=== PATIENT | female | born 1945 | race Caucasian/White ===

== ENCOUNTER 2016-07-22 23:58 | Observation (INO) | payer MEDICARE, BC ==
--- NOTE | ~2016-07-22 | HP ---
History And Physical [id number] [facility] [place]. [address] NAME: ELAINE FLOREZ : 49 STATUS : ADM Mike PAT#: [id number] AGE: 71 ADM/REG DATE : 07/22/16 MR#: [id number] REPORT SERV DATE: 07/23/16 DICTATED BY: ABDULAZIZ APONTE DATE: 07/23/16 REPORT STATUS : Draft TRANSCRIBED BY: MODL DATE: 07/23/16 DATE OF ADMISSION: 07/23/2016 CHIEF COMPLAINT: Bilateral lower extremity swelling and redness and pain. HISTORY OF PRESENT ILLNESS: This is a 71-year-old lady with history of questionable bilateral lower extremity cellulitis presenting yet again with complaints of bilateral lower extremity edema, redness, and tenderness. The patient reports that she has been fighting "bilateral lower extremity cellulitis" since Thanks of last year. The patient feels that she has never really gotten over the cellulitis. The patient apparently has had multiple ER presentations as well as hospitalizations and the patient did actually get multiple courses of antibiotics. The patient was most recently hospitalized back in 04/2016 and at that time, the patient was actually seen by Infectious Disease. It was felt that the patient was suffering from a combination of lymphedema along with peripheral neuropathic pain and venous insufficiency that made it look like she was suffering from bilateral lower extremity cellulitis. Unfortunately, patient is very fixated on the idea of having an active infection. The patient firmly believes that the patient has gotten better every time with antibiotic therapy. The patient came to the ER 1 week ago and at that time the patient was actually discharged home from ER after she had a very benign evaluation that included CBC, lactate, and blood cultures. They were all normal and the patient was discharged home without any antibiotics which patient is quite upset about. The patient presents yet again with the above symptoms. In the ER, patient was found to be afebrile and hemodynamically stable. The patient was found to have again red and swollen bilateral lower extremities with warmth to touch. Internal Medicine consultation was requested for admission of the patient for further evaluation and care. 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 REVIEW OF SYSTEMS: The patient reports that she had fevers up to 101 at home. Otherwise, 14-point review of systems reviewed and negative other than mentioned above. MEDICATIONS: The list is still pending at this time. ALLERGIES: ERYTHROMYCIN. PAST MEDICAL HISTORY: 1. Bilateral venous insufficiency. 2. Peripheral neuropathic pain. History And Physical [address] [address] NAME: ELAINE FLOREZ : 49 STATUS : ADM Mike PAT#: [id number] AGE: 71 ADM/REG DATE : 07/22/16 MR#: [id number] REPORT SERV DATE: 07/23/16 DICTATED BY: ABDULAZIZ APONTE DATE: 07/23/16 REPORT STATUS : Draft TRANSCRIBED BY: SHARON DATE: 07/23/16 3. Bilateral lower extremity lymphedema. 4. Frequent UTIs. 5. Questionable cellulitis in the past. Very similar to today's episode which apparently responded to antibiotics per patient. 6. Anxiety with hypomania. 7. Osteoporosis. 8. Osteoarthritis. PAST SURGICAL HISTORY: Three breast lumpectomies which were all benign. FAMILY HISTORY: 1. Coronary artery disease. 2. Alzheimer's dementia. SOCIAL HISTORY: The patient does not smoke but she does consume red wine almost nightly. The patient otherwise does not use any illicit drugs. The patient lives at home by herself. PHYSICAL EXAMINATION: VITAL SIGNS: Temperature 98.1, blood pressure 171/74, pulse 95, respiratory rate is 20, and saturating 100% on room air. GENERAL: Patient is alert and oriented x3 with no focal neurologic deficits. The patient is awake, does not appear to be in acute distress, and she is cooperative. NECK: No JVD. No lymphadenopathy. Normal thyroid. CHEST: No midline sternotomy scar and no tenderness to palpation. LUNGS: Clear to auscultation bilaterally with normal respiratory effort on room air. CARDIOVASCULAR: Regular rate and rhythm with no murmurs, rubs, or gallops, and PMI is nondisplaced. ABDOMEN: Soft, nontender with active bowel sounds and no organomegaly. EXTREMITIES: The patient does have 2+ bilateral lower extremity pitting edema with redness which may be venous stasis changes as well as warmth. The patient also has bilateral lower extremity tenderness to palpation. The patient otherwise has normal distal pulses and no calf tenderness. SKIN: Clean, dry, warm, and intact. LABORATORY DATA: The labs from today are still pending but the patient has had very benign lab work from one week ago that included CBC, BMP as well as lactate. Blood cultures were done at that time and it was negative x2. ASSESSMENT AND PLAN: This is a 71-year-old lady with history of questionable bilateral lower extremity cellulitis presenting with another episode. 1. Questionable bilateral lower extremity cellulitis, it is more likely that patient is suffering from a combination of bilateral lower extremity chronic lymphedema along with venous insufficiency and peripheral neuropathy as she was evaluated back in 04/2016. 2. 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 3. Anxiety with hypomania. 4. Osteoarthritis. History And Physical [address] [address] NAME: ELAINE FLOREZ : 49 STATUS : ADM Mike PAT#: [id number] AGE: 71 ADM/REG DATE : 07/22/16 MR#: [id number] REPORT SERV DATE: 07/23/16 DICTATED BY: ABDULAZIZ APONTE DATE: 07/23/16 REPORT STATUS : Draft TRANSCRIBED BY: SHARON DATE: 07/23/16 5. Osteoporosis. PLAN: The plan is to admit the patient for observation. I explained to patient that she will not be given any additional antibiotic therapy unless further evaluations do point towards cellulitis since having been on multiple antibiotics cannot be good for her. The patient is understanding. Thus I will go ahead and check procalcitonin level and follow up on the lab work from the ER that is still pending at this time. I will also go ahead and check ultrasound of the bilateral extremities just to rule out potential DVT. The patient will be given compression stockings for the chronic lymphedema and venous insufficiency changes. For the claimed Jarrod syndrome since the patient is quite concerned, I will go ahead and check calcium level to include ionized calcium and albumin levels in the morning and for alcohol abuse, the patient will be given daily vitamins along with being monitored under CIWA protocol. Otherwise, for the rest of stable past medical conditions, including anxiety, hypomania, osteoarthritis, osteoporosis, and will continue home medications when the home medication list becomes available. Tentative disposition is to anticipate discharge of the patient home after she has had negative infectious workup. Standard DVT prophylaxis. The patient is full code at this time. YSC/MODL Abdulaziz Aponte MD / [id number] CC: MD Brady Harvey,
--- NOTE | ~2016-07-22 | DS ---
Discharge Summary [facility] [address] [place]. [address] NAME: ELAINE FLOREZ : 49 STATUS : DIS Mike PAT#: [id number] AGE: 71 ADM/REG DATE : 07/22/16 MR#: [id number] REPORT SERV DATE: 07/24/16 DICTATED BY: ANGEL MOMIN DATE: 07/23/16 REPORT STATUS : Draft TRANSCRIBED BY: SHARON DATE: 07/23/16 ADMISSION DATE: 07/22/2016 DISCHARGE DATE: 07/23/2016 DISCHARGE DIAGNOSES: 1. Bilateral lower extremity lymphedema. 2. Bilateral lower extremity venous insufficiency. 3. Bilateral lower extremity cellulitis ruled out. 4. Hypocalcemia. 5. Alcohol use. 6. Anxiety with hypermania. IMAGIN. CT of brain, 07/23/2016, no acute head CT. 2. Chest x-ray, 07/23/2016; impression, cardiomegaly, stable. There are some minimal lateral atelectatic changes. 3. Venous Doppler ultrasound, bilateral lower extremities, 07/23/2016; impression, no evidence of DVT bilaterally. LABORATORY DATA: WBC 7.7, hemoglobin 10.5, hematocrit 34.0, platelet count 362, and procalcitonin is less than 0.05. Sodium is 143, potassium is 3.7, chloride is 110, lactate is 0.7, BUN is 17, creatinine is 0.78, glucose is 120, calcium is 8.4, ionized calcium is 3.56, albumin is 3.2, and BNP is 10.8. COURSE DURING HOSPITAL STAY: Please refer to history and physical dictated by Dr. Aponte on 07/23/2016 for complete admission details. This patient is a 71-year-old female, who presented to [facility]'s Emergency Room with complaints of bilateral lower extremity swelling, redness, and pain. The patient does present with a history of lymphedema, has been noted with several emergency room visits due to complaints of edema and pain. The patient does state that prior to this admission she had a recent fall approximately 4 days before this visit. Does admit to alcohol use. States that she was evaluated in the emergency room and was told she had sprained her left wrist, noted in a brace at this time. The patient does state that she has had bruising on her hand and on her left zoroastrian. The patient was admitted under observation for further evaluation and testing. 1. Bilateral lower extremity edema, bilateral lower venous insufficiency. The patient has had a known history of lymphedema, has been following up with her primary care. The patient's WBC count is normal, afebrile. Ultrasound was negative for DVT. The patient does state that she has seen someone as an outpatient for lymphedema but has not been wrapping her legs at home due to lack of understanding on care. We will arrange for patient to follow up Wound Care as an outpatient for lymphedema education. 2. With the cellulitis, the patient has known slight redness in bilateral lower extremities both with history of lymphedema. The patient was monitored over 24 hours. Afebrile. No increase in edema or pain. DVT negative. The patient will follow up with her primary care this week for further testing for further evaluation. The Discharge Summary [id number] [place]. [address] NAME: ELAINE FLOREZ : 49 STATUS : DIS Mike PAT#: [id number] AGE: 71 ADM/REG DATE : 07/22/16 MR#: [id number] REPORT SERV DATE: 07/24/16 DICTATED BY: ANGEL MOMIN DATE: 07/23/16 REPORT STATUS : Draft TRANSCRIBED BY: SHARON DATE: 07/23/16 patient was not started on antibiotics. 3. Hypocalcemia, calcium is 8.4, ionized calcium is 3.56, this will be replaced per protocol before the patient is discharged. 4. Alcohol use, it was discussed with the patient regarding her alcohol use, the patient does admit to daily use, was offered counseling as inpatient or outpatient, the patient did decline at this time. 5. Anxiety with hypermania, the patient does state that she follows with a counselor as an outpatient. Have advised the patient to continue to follow with counselor. She did state understanding. DISCHARGE MEDICATIONS: 1. Folic acid 1 mg daily. 2. Multivitamin over the counter 1 daily. 3. Vitamin D 2000 units p.o. daily. 4. Nasacort nasal spray as directed by primary care. 5. Awilda 1 tablet daily. 6. Belsomra 15 mg one p.o. at bedtime. 7. Probiotic 1 p.o. daily. 8. Estrace 0.1 mg daily. 9. Risperdal 0.25 mg one p.o. p.r.n. DISCHARGE PLANNING: The patient will follow up with her primary care in 3 to 5 days. She will also be provided appointment with the [facility] for lymphedema education and treatment. No prescriptions were provided at discharge. This discharge took greater than 30 minutes. ALFRED/HSARON Angel Momin NP / [id number] CC: MD Brady Harvey DO
[~2016-07-22 23:58] MED LIST: ACET500CAP PO; ADVIL PO; ANTI-FUNGAL12 TOP; ASAB PO; ATV1 PO; BACDS PO; CENTRUM PO; CIP5 PO; FLORASTOR250 MG PO; FLUCON150 PO; FOSAMAX70 MG PO; K500 PO; LIDODERM TOP; LOTRIMIN AF12 EX; LYRICA75 PO; METHOC750B PO; MOBIC15 MG PO; MONODOX100 MG PO; NORCO1 TA1 PO; PAXIL40 MG PO; SULFA PO; ULTRAM50 PO; VOLTAREN1 %
[2016-07-23 03:07] LABS: BASOPHILS 0.4 %; BASOPHILS ABSOLUTE 0.03 10/3/uL (0.0-0.16); EOSINOPHILS 1.3 %; EOSINOPHILS ABSOLUTE 0.11 10/3/uL (0.0-0.53); HEMATOCRIT 34.9 % (36.0-48.0); HEMOGLOBIN 10.9 g/dL (12.0-16.0); IMMATURE GRANULOCYTES 0.4 %; IMMATURE GRANULOCYTES ABSOLUTE 0.03 10/3/uL (0.0-0.11); LYMPHOCYTES 16.7 %; LYMPHOCYTES ABSOLUTE 1.38 10/3/uL (0.67-4.30); MEAN CORPUS HGB CONC 31.2 g/dL (32.0-36.0); MEAN CORPUSCULAR VOLUME 89.7 fL (80-100); MEAN PLATELET VOLUME 8.8 fL (9.2-13.0); MONOCYTES 7.8 %; MONOCYTES ABSOLUTE 0.64 10/3/uL (0.21-1.20); NEUTROPHILS 73.4 %; NEUTROPHILS ABSOLUTE 6.06 10/3/uL (2.02-8.40); PLATELET COUNT 409 10/3/uL (150-400); RBC DISTRIBUTION WIDTH 16.2 % (12.0-16.0); RED CELL COUNT 3.89 10/6/uL (4.0-5.6)
[2016-07-23 03:09] LABS: ER CBC TAT 0 Hrs 07 Mins; MANUAL DIFF NO %; WHITE BLOOD CELLS 8.3 10/3/uL (4.5-10.5)
[2016-07-23 03:27] LABS: LACTATE 0.7 MMOL/L (0.3-2.4)
[2016-07-23] MEDS ORDERED: NASACORTAQ (04:38)
[2016-07-23] MEDS ORDERED: VITAMIN D2000 UNIT PO (04:38)
[2016-07-23] MEDS ORDERED: ALLEGRA PO (04:38)
[2016-07-23] MEDS ORDERED: BELSOMRA15 MG PO (04:39)
[2016-07-23] MEDS ORDERED: PROBIOTIC PO (04:39)
[2016-07-23] MEDS ORDERED: METRONIDAZOLE CREAM V (04:41)
[2016-07-23] MEDS ORDERED: ESTRACE V (04:41)
[2016-07-23] MEDS ORDERED: RISPERDAL0.25 MG PO (04:42)
[2016-07-23 05:12] LABS: SED RATE 24 MM/HR (0-20)
[2016-07-23 07:18] LABS: BASOPHILS 0.3 %; BASOPHILS ABSOLUTE 0.02 10/3/uL (0.0-0.16); EOSINOPHILS 1.2 %; EOSINOPHILS ABSOLUTE 0.09 10/3/uL (0.0-0.53); HEMOGLOBIN 10.5 g/dL (12.0-16.0); IMMATURE GRANULOCYTES 0.4 %; IMMATURE GRANULOCYTES ABSOLUTE 0.03 10/3/uL (0.0-0.11); LYMPHOCYTES 18.5 %; LYMPHOCYTES ABSOLUTE 1.43 10/3/uL (0.67-4.30); MEAN CORPUS HGB CONC 30.9 g/dL (32.0-36.0); MEAN CORPUSCULAR HEMOGLOB 27.1 pg (26.0-34.0); MEAN CORPUSCULAR VOLUME 87.6 fL (80-100); MEAN PLATELET VOLUME 8.7 fL (9.2-13.0); MONOCYTES 7.5 %; MONOCYTES ABSOLUTE 0.58 10/3/uL (0.21-1.20); NEUTROPHILS 72.1 %; NEUTROPHILS ABSOLUTE 5.59 10/3/uL (2.02-8.40); PLATELET COUNT 362 10/3/uL (150-400); RBC DISTRIBUTION WIDTH 16.3 % (12.0-16.0); RED CELL COUNT 3.88 10/6/uL (4.0-5.6); WHITE BLOOD CELLS 7.7 10/3/uL (4.5-10.5)
[2016-07-23 07:19] LABS: MANUAL DIFF NO %
[2016-07-23 07:30] LABS: ALBUMIN 3.2 G/DL (3.5-5.0); BUN (BLOOD UREA NITROGEN) 17 MG/DL (6-23); CALCIUM, SERUM 8.4 MG/DL (8.5-10.4); CHLORIDE, SERUM 110 MMOL/L (96-112); CO2 (CARBON DIOXIDE) 22 MMOL/L (24-34); CREATININE 0.78 MG/DL (0.55-1.02); GFR AFRICAN AMERICAN 90 ML/MIN (>=60); GFR NON AFRICAN AMERICAN 78 ML/MIN (>=60); GLUCOSE, SERUM 120 MG/DL (60-99); POTASSIUM, SERUM 3.7 MMOL/L (3.5-5.3); SODIUM, SERUM 143 MMOL/L (135-148)
[2016-07-23 08:20] LABS: PROCALCITONIN <0.05 ng/mL (<0.5)
[2016-07-23] MEDS ORDERED: FOLIC PO (12:37)
[2016-07-23] MEDS ORDERED: MULTIPLE VIT PO (12:37)
[2016-07-30] MEDS ORDERED: ENDOCET1 TAB PO (17:12)
== END 2016-07-23 13:07 | disposition home or self-care (01) ==
LOC: ER 23:58 → SDC/OF 23:59 → 4EA 07-23 03:58
PROVIDERS: Emergency Medicine; Internal Medicine
DX: I89.0 Lymphedema, not elsewhere classified (principal); I87.2 Venous insufficiency (chronic) (peripheral); E83.51 Hypocalcemia; F41.9 Anxiety disorder, unspecified; M81.0 Age-related osteoporosis without current pathological fracture; M19.90 Unspecified osteoarthritis, unspecified site; H91.90 Unspecified hearing loss, unspecified ear; G89.29 Other chronic pain; M54.9 Dorsalgia, unspecified; F32.9 Major depressive disorder, single episode, unspecified; Z88.1 Allergy status to other antibiotic agents; Z98.890 Other specified postprocedural states; Z82.49 Family history of ischemic heart disease and other diseases of the circulatory system
CPT/HCPCS: 70450; 71010; 80048; 82040; 82330; 83605; 83880; 84145; 85025; 85652; 87040; 93970; 96365; 96372; 96375; 99285; A9270-GY; G0378; J0610; J3370; J3411

== ENCOUNTER 2016-07-27 02:58 | Emergency (ER) | payer MEDICARE, BC ==
[2016-07-27 02:06] LABS: ASCORBIC ACID (UR NOT ORDER) NEG (NEG); BILIRUBIN, URINE NEGATIVE (NEG); ER URINALYSIS TAT 0 Hrs 00 Mins; KETONE, URINE NEGATIVE (NEG); LEUKOCYTE ESTERASE(NOT OR NEG (NEG); NITRITE (URINE) NEG (NEG); WBC (NOT ORDERED) (RFLEX) 4 (0-5)
[2016-07-27 02:09] LABS: BASOPHILS 0.5 %; BASOPHILS ABSOLUTE 0.03 10/3/uL (0.0-0.16); EOSINOPHILS 1.7 %; EOSINOPHILS ABSOLUTE 0.11 10/3/uL (0.0-0.53); ER CBC TAT 0 Hrs 09 Mins; HEMOGLOBIN 10.7 g/dL (12.0-16.0); IMMATURE GRANULOCYTES 0.2 %; IMMATURE GRANULOCYTES ABSOLUTE 0.01 10/3/uL (0.0-0.11); LYMPHOCYTES 22.4 %; LYMPHOCYTES ABSOLUTE 1.44 10/3/uL (0.67-4.30); MEAN CORPUS HGB CONC 30.6 g/dL (32.0-36.0); MEAN CORPUSCULAR HEMOGLOB 27.6 pg (26.0-34.0); MEAN CORPUSCULAR VOLUME 90.2 fL (80-100); MEAN PLATELET VOLUME 8.6 fL (9.2-13.0); MONOCYTES 5.7 %; MONOCYTES ABSOLUTE 0.37 10/3/uL (0.21-1.20); NEUTROPHILS 69.5 %; NEUTROPHILS ABSOLUTE 4.48 10/3/uL (2.02-8.40); PLATELET COUNT 379 10/3/uL (150-400); RED CELL COUNT 3.88 10/6/uL (4.0-5.6); WHITE BLOOD CELLS 6.4 10/3/uL (4.5-10.5)
[2016-07-27 02:10] LABS: MANUAL DIFF NO %
[2016-07-27 02:24] LABS: A/G RATIO 0.9 (0.7-1.9); ALBUMIN 3.4 G/DL (3.5-5.0); ALKALINE PHOSPHATASE 80 U/L (45-117); BUN (BLOOD UREA NITROGEN) 17 MG/DL (6-23); CALCIUM, SERUM 8.6 MG/DL (8.5-10.4); CHLORIDE, SERUM 111 MMOL/L (96-112); CO2 (CARBON DIOXIDE) 26 MMOL/L (24-34); CREATININE 0.81 MG/DL (0.55-1.02); GFR AFRICAN AMERICAN 86 ML/MIN (>=60); GFR NON AFRICAN AMERICAN 74 ML/MIN (>=60); GLOBULIN 3.7 G/DL (2.5-4.1); GLUCOSE, SERUM 107 MG/DL (60-99); POTASSIUM, SERUM 3.9 MMOL/L (3.5-5.3); SGOT(AST) 18 U/L (5-40); SGPT(ALT) 24 U/L (5-65); SODIUM, SERUM 146 MMOL/L (135-148); TOTAL BILIRUBIN 0.2 MG/DL (0-1.2); TOTAL PROTEIN 7.1 G/DL (6.0-8.5)
[~2016-07-27 02:58] MED LIST changes: +ALLEGRA PO; +BELSOMRA15 MG PO; +ESTRACE V; +FOLIC PO; +METRONIDAZOLE CREAM V; +MULTIPLE VIT PO; +NASACORTAQ; +PROBIOTIC PO; +RISPERDAL0.25 MG PO; +VITAMIN D2000 UNIT PO
[2016-07-30] MEDS ORDERED: ENDOCET1 TAB PO (17:12)
== END 2016-07-27 04:25 | disposition home or self-care (01) ==
LOC: ER 02:58
PROVIDERS: Specialist
DX: N20.1 Calculus of ureter (principal); N81.4 Uterovaginal prolapse, unspecified; R60.0 Localized edema; I87.2 Venous insufficiency (chronic) (peripheral); F41.9 Anxiety disorder, unspecified; Z88.1 Allergy status to other antibiotic agents; Z79.899 Other long term (current) drug therapy
CPT/HCPCS: 74176; 80053; 81001; 83690; 85025; 99285